=== PATIENT | female | born 1960 | race Caucasian/White ===

== ENCOUNTER 2016-11-13 20:00 | Inpatient (IN) | payer OTHER ==
[~2016-11-13] VITALS: Ht 170.2 cm; Wt 59.0 kg
--- NOTE | ~2016-11-13 | CO ---
Unit #: [id number] #: [id number] Patient: IVY DESHPANDE [id number] [place] [address] [id number] MR#: [id number] NAME: IVY DESHPANDE ROOM: P173 Age: 56 Sex: F Admission Date: 11/13/2016 : 1960 Attending Physician: Veronique Hoff M.D. Primary Care Physician: Generic Doctor Not In System Consultation Date: 11/15/2016 CONSULTATION REPORT SUBJECTIVE Ivy is a 56-year-old with an abnormal urinalysis on admission. She has no complaints of urgency, frequency, or dysuria. There have been no recorded increased temperatures. OBJECTIVE ABDOMEN: Soft and nontender. BACK: Negative CVA tenderness. DIAGNOSTIC STUDIES LABORATORY RESULTS: Admission urinalysis; 4+ bacteria, 25 to 50 wbc's. ASSESSMENT Urinary tract infection. PLAN Bactrim DS one p.o. b.i.d. x3 days. Dictated by... Giovana Hidalgo P.A.-C. for Ghassan Lyn/yun TD: 11/17/2016 01:34 JOB #: [id number] CONSULTATION REPORT Page 1 of 1 X Giovana Hidalgo CONSULTATION REPORT
--- NOTE | ~2016-11-13 | PN ---
Unit #: [id number] #: [id number] Patient: ALLAN DESHPANDE [id number] [facility] [address] [place] [address] [id number] I MR#: [id number] NAME: ALLAN DESHPANDE ROOM: P173 Age: 56 Sex: F Admission Date: 11/13/2016 : 1960 Attending Physician: Veronique Hoff M.D. Admitting Physician: Veronique Hoff M.D. Primary Care Physician: Generic Doctor Not In System [facility] PROGRESS NOTES DATE 11/16/2016 DISCUSSION Ms. Deshpande is a 56-year-old white female with substance abuse and mood disorder who was seen today and chart was reviewed and case was discussed with the staff. She reports persistent anxiety as well as chronic pain issues and wants to be prescribed Motrin and Lidocaine patches for her back pain. Patient has been taking medications and tolerating them fairly well with no reported side effects. MENTAL STATUS EXAMINATION Middle-aged white female who was casually dressed with fair personal hygiene, appears to be in no acute distress or discomfort. She was awake and alert on interaction with intact orientation. Her mood was anxious with congruent affect. She denies any suicidal or homicidal ideations. Her insight and judgement remains slightly impaired. TREATMENT PLAN 1. We will continue her on her current medications and treatment protocol. We will monitor her response and make further adjustments as needed. 2. We will continue to follow up. Dictated by... Ghassan Lockhart/jj TD: 11/16/2016 21:33 JOB #: [id number] Unit #: [id number] #: [id number] Patient: ALLAN DESHPANDE [facility] PROGRESS NOTES Page 1 of 1 X Veronique Hoff MD PROGRESS NOTE
--- NOTE | ~2016-11-13 | PN ---
Unit #: [id number] #: [id number] Patient: ALLAN DESHPANDE [id number] [facility] [address] [place] [address] [id number] I MR#: [id number] NAME: ALLAN DESHPANDE ROOM: P173 Age: 56 Sex: F Admission Date: 11/13/2016 : 1960 Attending Physician: Veronique Hoff M.D. Admitting Physician: Veronique Hoff M.D. Primary Care Physician: Generic Doctor Not In System [facility] PROGRESS NOTES DATE November 15, 2016 DISCUSSION Ms. Deshpande is a 56-year-old white female, who was seen today and chart was reviewed and the case was discussed with the staff. She has been anxious, withdrawn, and rather seclusive to herself. Meanwhile, she has been cooperative with the treatment recommendations, and has been taking the medications and tolerating them fairly well with no reported side effects. MENTAL STATUS EXAMINATION Middle-aged white female, who was casually dressed with fair personal hygiene and appears to be in slight distress and discomfort. She was awake and alert with impaired attention and concentration. Her mood was anxious with a congruent affect. Her speech is slow and restricted in content. The patient denies any suicidal or homicidal ideations, and also denies any auditory or visual hallucinations. Her insight and judgment remain slightly impaired. TREATMENT PLAN 1. We will continue her on her current medications and treatment protocol, and will monitor her response to the medications, and make further adjustments as needed. 2. We will continue to followup. Dictated by... Ghassan Lockhart/gunnar TD: 11/16/2016 05:26 JOB #: [id number] Unit #: [id number] #: [id number] Patient: ALLAN DESHPANDE [facility] PROGRESS NOTES Page 1 of 1 X Veronique Hoff MD PROGRESS NOTE
--- NOTE | ~2016-11-13 | PN ---
Unit #: [id number] #: [id number] Patient: ALLAN DESHPANDE [id number] [facility] [place] [address] [id number] I MR#: [id number] NAME: ALLAN DESHPANDE ROOM: P173 Age: 56 Sex: F Admission Date: 11/13/2016 : 1960 Attending Physician: Veronique Hoff M.D. Admitting Physician: Veronique Hoff M.D. Primary Care Physician: Generic Doctor Not In System [facility] PROGRESS NOTES DATE OF SERVICE 11/17/2016 DISCUSSION Ms. Deshpande is a 56-year-old white female with substance abuse and mood disorder who was seen today. Chart was reviewed and case was discussed with the staff. He has been exhibiting very bizarre behavior and has been complaining of being in pain and having a urinary tract infection since yesterday. Medical consultation was requested, and she was seen in consultation and was described antibiotic but has been refusing to take antibiotic because she does not want the pain to go away, and that she wants to just go to the emergency room. We have a feeling that she wants to go there and request medications as she is a IV heroin user and is getting done with the detox, and still has been showing very poor insight. She stated that she does not want to take antibiotics because she does not want the pain to go away for her to feel better, and that she just wants to go to the emergency room to get some "real medicine." MENTAL STATUS EXAMINATION Middle-aged white female who is casually dressed with fair personal hygiene, appears to be in slight distress or discomfort. She was awake and alert with intact orientation. She denies any suicidal or homicidal ideations. Her insight and judgment remain significantly impaired. TREATMENT PLAN We will continue her on her current medications and treatment protocol. We will encourage the patient to show better compliance with treatment recommendations though I have a feeling that she might decide to leave against medical advice and go to the emergency room seeking pain medications. Dictated by... Veronique Hoff M.D. IAA/bzg TD: 11/18/2016 08:21 JOB #: [id number] Unit #: [id number] #: [id number] Patient: ALLAN DESHPANDE AR[facility] PROGRESS NOTES Page 1 of 1 X Veronique Hoff MD PROGRESS NOTE
--- NOTE | ~2016-11-13 | DS ---
Unit #: [id number] #: [id number] Patient: ALLAN DESHPANDE [id number] [facility] [place] [address] [id number] MR#: [id number] NAME: ALLAN DESHPANDE ROOM: P173 Age: 56 Sex: F Admission Date: 11/13/2016 : 1960 Discharge Date: 11/17/2016 Attending Physician: Veronique Hoff M.D. Primary Care Physician: Generic Doctor Not In System DISCHARGE SUMMARY IDENTIFYING DATA Ms. Sow is a 56-year-old white female, with mood disorder, who is known to us from previous encounters and who was self-referred to the hospital. HISTORY OF PRESENT ILLNESS Please see initial psychiatric evaluation for details. PAST PSYCHIATRIC HISTORY Please see initial psychiatric evaluation for details. PAST MEDICAL HISTORY Please see initial psychiatric evaluation for details. HOSPITAL COURSE The patient was [facility] and was oriented to the hospital environment and routine p.r.n. medications and she was initially started back on her home medications and detox protocol was initiated; however, there seemed to be no improvement and showing poor insight and she was not willing to complete the program and decided that she wanted to leave AGAINST MEDICAL ADVICE and the recommendation was for the need for the patient to complete her detox, she refused to take that recommendation for treatment and was denying any suicidal ideations, intent, or plan and was not meeting criteria for involuntary psychiatric hospitalization and as such it was decided that she would be discharged AGAINST MEDICAL ADVICE. DISCHARGE DIAGNOSES PSYCHIATRIC: Utopia I Opiate dependence, moderate, with acute withdrawal. Alcohol abuse disorder. Utopia II Utopia III None. Utopia IV Moderate psychosocial stressors. Utopia V CONDITION AT DISCHARGE Stable. PROGNOSIS Guarded. Unit #: [id number] #: [id number] Patient: ALLAN DESHPANDE Dictated by... Ghassan Lockhart/gunnar TD: 12/01/2016 12:04 JOB #: [id number] DISCHARGE SUMMARY Page 1 of 1 X Veronique Hoff MD X DISCHARGE SUMMARY
--- NOTE | ~2016-11-13 | HP ---
Unit #: [id number] #: [id number] Patient: ALLAN DESHPANED [id number] [place] [address] [id number] I MR#: [id number] NAME: ALLAN DESHPANDE ROOM: P173 Age: 56 Sex: F Admission Date: 11/13/2016 : 1960 Attending Physician: Veronique Hoff M.D. Admitting Physician: Veronique Hoff M.D. Primary Care Physician: Generic Doctor Not In System HISTORY AND PHYSICAL REASON FOR ADMISSION Acute psychiatric inpatient admission. HISTORY OF PRESENT ILLNESS The patient is a 56-year-old female who states that she is dependent on her when she last used on 11/12/2016. She reports that she would like to quit using heroin. She also reported suicidal ideation and increased depression, therefore was admitted for the same. PAST MEDICAL HISTORY Remote history of heart murmur, hepatitis C, chronic back pain issues, osteoarthritis, prior history of overdose. HOME MEDICATIONS Seroquel. SOCIAL HISTORY Positive alcohol, tobacco, marijuana, heroin IV. REVIEW OF SYSTEMS Positive abdominal cramping, depressed mood, headache, poor appetite, irritability, nervousness, restlessness, and tremors, otherwise as per HPI. PHYSICAL EXAMINATION GENERAL: Awake, alert, oriented to person, place, and time. Well built, well nourished. Does not appear to be in any acute distress. VITAL SIGNS: Temperature 97.5, blood pressure 88/52, respiratory rate 16, and pulse 54. HEAD: Atraumatic. Normocephalic. EYES: Bilateral extraocular muscles are normal. Pupils equal, reactive to light and accommodation. Sclerae are normal. No jaundice. NECK: Neck is supple. No neck rigidity. No thyromegaly. No carotid bruit. No JVD. Oral mucosa is moist. CHEST: Bilateral vesicular breathing. Clear to auscultation. No basilar rales. CARDIOVASCULAR: S1 and S2 normal. No murmur, no gallop, no rub. ABDOMEN: Soft, nontender. No organomegaly. Bowel sounds are normal. No hernia, no masses, no rebound, no guarding. EXTREMITIES: No pitting edema. No calf tenderness. Extremity pulses, including dorsalis pedis, have good volume. BACK: Normal spine curvature. No spine tenderness. No costovertebral angle tenderness. BOTTOM TURNING LATHE TURNER: Cranial nerves normal bilaterally. Motor function bilaterally Unit #: [id number] #: [id number] Patient: ALLAN DESHPANDE symmetric and normal. Sensory system normal. SKIN: Warm and dry. INITIAL IMPRESSION 1. Acute psychiatric inpatient admission. 2. Substance abuse. 3. Hepatitis C. 4. Chronic osteoarthritis. PLAN As per psychiatrist, her medical condition stable, medical prognosis is fair. There are no medical contraindications to the patient participating in activities while here at [facility]. Dictated by... Ghassan Lyn/yun TD: 11/14/2016 18:57 JOB #: [id number] HISTORY AND PHYSICAL Page 1 of 1 X Nabor Wang MD X HISTORY AND PHYSICAL
--- NOTE | ~2016-11-13 | PA ---
Unit #: [id number] #: [id number] Patient: ALLAN DESHPANDE [id number] [place] [address] [id number] I MR#: [id number] NAME: ALLAN DESHPANDE ROOM: P173 Age: 56 Sex: F Admission Date: 11/13/2016 : 1960 Date of Assessment: Attending Physician: Veronique Hoff M.D. Admitting Physician: Veronique Hoff M.D. PSYCHIATRIC ASSESSMENT DATE OF SERVICE 11/14/2016. IDENTIFYING DATA Ms. Sow is a 56-year-old , single white female, who is a resident of [place], [place], and is very well known to me from previous encounter, and was self-referred to the hospital on a voluntary basis. CHIEF COMPLAINT "I'm coming down off heroin". HISTORY OF PRESENT ILLNESS Ms. Sow is a 56-year-old white female with long history of substance abuse and dependence, who is known to me from previous encounter, and was under my treatment not too long ago, and decided to leave and as such, she was pushing to leave and was rather inappropriate, rude, and hostile with me and demanding to leave, stating that she has never going to come back and was refusing to participate in treatment and refusing to cooperative with treatment recommendations. Meanwhile, she now reports increasing depression, anxiety, irritability, restlessness, feelings of hopelessness and helplessness, but denies any suicidal ideations, intent or plan. SUBSTANCE ABUSE HISTORY The patient reports extensive history of substance abuse and dependence including alcohol, cannabis, and currently opioids, particularly IV heroin has been her drug of choice. She reports that she has been using IV heroin on daily basis. PAST PSYCHIATRIC HISTORY The patient has a history of multiple inpatient psychiatric and chemical dependency treatments including being at [facility], [facility], and [facility]. Review of the medical records indicate currently she is not active in any treatment program, is not seeing a psychiatrist, and is not taking any psychotropic medications. PAST MEDICAL HISTORY Hepatitis C, arthritis, and chronic back pain. ALLERGIES No known medication allergies. PERSONAL AND SOCIAL HISTORY Unit #: [id number] #: [id number] Patient: ALLAN DESHPANDE This is a 56-year-old white female, who reports that she is single, unemployed, lives alone, and has poor social support system. MENTAL STATUS EXAMINATION Middle-aged white female, who was casually dressed with fair personal hygiene, appears to be in no acute distress or discomfort. She was awake and alert and interaction with intact orientation to time, place, and person. Her mood was anxious and depressed with a congruent affect. Her speech was slow and restricted in content. Her thought processes were disorganized with some looseness of associations and flight of ideas. The patient denies any suicidal or homicidal ideations, and also denies any auditory or visual hallucinations. Her insight and judgment remain significantly impaired. DIAGNOSTIC IMPRESSION Psychiatric: Opioid dependence, moderate, and acute withdrawal; alcohol abuse, moderate; cannabis abuse, moderate; opioid-induced mood disorder. Medical: None. Stressors: Moderate psychosocial stressors. TREATMENT PLAN 1. The patient has presented with history of mood disorder and substance abuse and has been decompensating and will need inpatient hospitalization for detoxification, safety, and stabilization. We will start her back on home medications. We will adjust the medications and monitor response. 2. Supportive therapy was provided to the patient. 3. Safe, structured, and nourishing environment will be provided. ESTIMATED LENGTH OF STAY 5 to 7 days. ABILITY TO HELP SELF Limited. WILLINGNESS TO HELP SELF The patient appears to be willing to help self. STRENGTHS 1. Communicative. 2. Cooperative. PROBLEMS 1. Chronic dysphoric symptoms. 2. Chronic chemical dependency. 3. Poor social support system. DISCHARGE CRITERIA This will be contingent upon the patient's ability to go through detox without having any significant withdrawal symptoms as well as ability to stay safe to herself, particularly after discharge from the hospital. Dictated by... Ghassan Lockhart/yun TD: 11/14/2016 09:54 Unit #: [id number] #: [id number] Patient: ALLAN DESHPANDE JOB #: [id number] PSYCHIATRIC ASSESSMENT Page 1 of 1 X Veronique Hoff MD X PSYCHIATRIC ASSESSMENT
[2016-11-14 11:08] LABS: BASOPHIL# 0.2 X10e3 (0-0.3); BASOPHIL% 0.9 % (0-2.5); EOSINOPHIL# 0.4 X10e3 (0-0.7); EOSINOPHIL% 2.2 % (0.0-7.0); HEMATOCRIT 39.5 % (35.0-45.0); HEMOGLOBIN 12.9 gm/dL (12.0-16.0); LYMPHOCYTE# 11.2 X10e3 (1.0-3.5); LYMPHOCYTE% 63.7 % (17.0-45.0); MEAN CELL VOLUME 89.4 FL (83-96); MEAN CORPUSCULAR HEMOGLOBIN 29.3 PG (28-34); MEAN CORPUSCULAR HGB CONC 32.8 g/dL (30-36); MEAN PLATELET VOLUME 10.6 FL (6.5-11.5); MONOCYTE# 0.8 X10e3 (0-1.0); MONOCYTE% 4.5 % (3.0-12.0); NEUTROPHIL# 5.1 X10e3 (1.5-7.1); NEUTROPHIL% 28.7 % (40-75); PLATELET COUNT 210 X10e3 (140-420); RED BLOOD COUNT 4.41 X10e (3.90-5.30); RED CELL DISTRIBUTION WIDTH 15.1 % (11.0-15.5); WHITE BLOOD COUNT 17.6 X10e3 (4.0-10.5)
[2016-11-14 11:09] LABS: DIFF IND YES
[2016-11-14 11:45] LABS: URINE APPEARANCE CLEAR; URINE BILIRUBIN NEG (NEG); URINE BLOOD NEG (NEG); URINE COLOR YELLOW; URINE GLUCOSE NEG (NEG); URINE KETONE NEG (NEG); URINE LEUKOCYTE ESTERASE 2+ (NEG); URINE NITRATE POS (NEG); URINE PROTEIN NEG (NEG); URINE SPECIFIC GRAVITY 1.009 (1.003-1.035); URINE UROBILINOGEN 0.2 MG/DL (NEG)
[2016-11-14 11:47] LABS: URBCS1 AUWI 0-2 /[HPF] (0-2); URINE BACTERIA AUWI 4+ (NEGATIVE); URINE SQUAMOUS EPITHELIAL CELL NONE SEEN /[HPF]; UWBCS1 AUWI 25-50 (0-5)
[2016-11-14 11:52] LABS: PLATELET ESTIMATE NORMAL (NORMAL)
[2016-11-14 12:16] LABS: ALBUMIN SERUM 3.5 g/dL (3.5-5.0); BILIRUBIN,TOTAL 0.4 mg/dL (0.2-2.0); BUN/CREATININE RATIO 16.36; CALCIUM SERUM 9.2 mg/dL (8.4-10.2); CREATININE SERUM 1.1 mg/dL (0.6-1.4); GLOM FILT RATE Estimated 56.1 mL/min (>60); POTASSIUM 4.2 mmol/L (3.5-5.1)
[2016-11-14 12:54] LABS: AMPHETAMINE NEG (NEG); BARBITURATES NEG (NEG); BENZODIAZEPINES NEG (NEG); COCAINE NEG (NEG); MARIJUANA POS (NEG); OPIATES POS (NEG); TRICYCLIC ANTIDEPRESSANTS NEG (NEG); U METHADONE NEG (NEG)
== END 2016-11-17 12:22 | disposition left against medical advice (07) | DRG 894 ==
LOC: P1E 21:26
PROVIDERS: Psychiatry & Neurology Psychiatry
PROC: HZ2ZZZZ Detoxification Services for Substance Abuse Treatment (ICD-10-PCS; principal; 2016-11-13)
DX: F11.23 Opioid dependence with withdrawal (principal); N39.0 Urinary tract infection, site not specified; F10.10 Alcohol abuse, uncomplicated; F12.10 Cannabis abuse, uncomplicated; F11.24 Opioid dependence with opioid-induced mood disorder; B19.20 Unspecified viral hepatitis C without hepatic coma; M19.90 Unspecified osteoarthritis, unspecified site
CPT/HCPCS: 80053; 80307; 81003; 84703; 85025